=== PATIENT | female | born 1940 | race Caucasian/White ===

== ENCOUNTER 2019-06-24 10:48 | Emergency (ER) | payer OTHER ==
[~2019-06-24] VITALS: Ht 152.4 cm; Wt 79.4 kg
[~2019-06-24 10:48] MED LIST: CLONAZEPAM0.5 MG; GABAPENTIN100 MG
[2019-06-24] MEDS ORDERED: [UNRECOGNIZED DRUG - OTHER] (11:22)
[2019-06-24] MEDS ORDERED: CARVEDILOL6.25 MG (11:23)
== END 2019-06-24 22:21 | disposition home or self-care (01) ==
LOC: ER 10:48
DX: K43.9 Ventral hernia without obstruction or gangrene (principal)

== ENCOUNTER 2020-08-14 07:11 | Day surgery (SDC) | payer OTHER ==
[~2020-08-14 07:11] MED LIST changes: +CARVEDILOL6.25 MG; +[UNRECOGNIZED DRUG - OTHER]
== END 2020-08-14 13:50 | disposition home or self-care (01) ==
LOC: AMB-ENDOS 07:11
PROVIDERS: ATTEND Colon & Rectal Surgery
DX: K62.89 Other specified diseases of anus and rectum (principal); Z20.828 Contact with and (suspected) exposure to other viral communicable diseases